=== PATIENT | female | born 1995 | race American Indian/Alaskan Native ===

== ENCOUNTER 2018-01-26 20:16 | Emergency (ER) | payer SELFPAY ==
[2018-01-26 20:47] VITALS: BP 112/75; PULSE 75; RESP 16; TEMP 99.3; O2SAT 100
--- NOTE | 2018-01-26 21:50 | C.PDOC ---
History Of Present Illness 22 year old female complains of constipation for 2 weeks. She has history of constipation, usually has bowel movement every 4 days. She has tried magnesium citrate, miralax, saline enema and suppositories and has not had a regular bowel movement. She feels the urge and admits to having pain in rectal area, denies any bleeding or hemorrhoids. She was seen at [facility] yesterday and they recommended fiber and miralax. She ate oatmeal, drank prune juice and miralax yesterday without relief. Denies any fever, nausea, vomiting, abdominal pain but feels discomfort. Time Seen by Provider: 01/26/18 20:50 Chief Complaint (Nursing): GI Problem History Per: Patient History/Exam Limitations: no limitations Onset/Duration Of Symptoms: Days Current Symptoms Are (Timing): Still Present Associated Symptoms: Constipation, Other ((+) Rectal pain (-) Abdominal pain). denies: Fever, Chills, Nausea, Vomiting Exacerbating Factors: None Alleviating Factors: None Recent travel outside of the [place]: No Abnormal Vaginal Bleeding: No Past Medical History Reviewed: Historical Data, Nursing Documentation, Vital Signs Vital Signs: Last Vital Signs Temp 99.3 F 01/26/18 20:42 Pulse 75 01/26/18 20:42 Resp 16 01/26/18 20:42 BP 112/75 01/26/18 20:42 Pulse Ox 100 01/26/18 22:48 - Medical History PMH: No Chronic Diseases Surgical History: No Surg Hx Family History: States: Unknown Family Hx - Social History Hx Alcohol Use: No Hx Substance Use: No - Immunization History Hx Influenza Vaccination: No Hx Pneumococcal Vaccination: No Review Of Systems Constitutional: Negative for: Fever, Chills Gastrointestinal: Positive for: Constipation, Rectal Pain. Negative for: Nausea , Vomiting, Abdominal Pain Genitourinary: Negative for: Dysuria, Hematuria Musculoskeletal: Negative for: Back Pain Physical Exam - Physical Exam Appears: Non-toxic Skin: Normal Color, Warm, Dry Head: Atraumatic, Normacephalic Eye(s): bilateral: Normal Inspection Neck: Normal ROM Chest: Symmetrical, No Tenderness Cardiovascular: Rhythm Regular Respiratory: Normal Breath Sounds, No Rales, No Rhonchi, No Wheezing Gastrointestinal/Abdominal: Bowel Sounds, Soft, No Tenderness, No Mass, No Distention, No Guarding Rectal: Rectal Tone (Normal), No Blood Streaked Stool, No Hemorrhoids, No Mass, No Other (Impacted stools) Extremity: Bilateral: Atraumatic Neurological/Psych: Oriented x3, Normal Speech ED Course And Treatment O2 Sat by Pulse Oximetry: 100 (Room air) Pulse Ox Interpretation: Normal Medical Decision Making Medical Decision Making: Obstructive series ordered, shows normal gas pattern, no fecal impaction or moderate fecal retention, stools seen in rectum. Patient resting comfortably in no distress, vitals are stable, and abdomen remains soft. I recommend fluids , rest, fiber and will discharge home with Rx and instructions to follow up with PMD. Disposition Counseled Patient/Family Regarding: Studies Performed, Diagnosis, Need For Followup - Disposition Disposition: HOME/ ROUTINE Disposition Time: 22:44 Condition: STABLE Additional Instructions: Follow up with your primary medical doctor or clinic in 2-5 days for further evaluation. Take medications as prescribed. Return to the emergency department at any time if symptoms persist or worsen. Prescriptions: Docusate [Colace] 100 mg PO TID PRN #30 cap PRN Reason: Constipation Instructions: Constipation, Adult (DC) - POA Present On Arrival: None - Clinical Impression Clinical Impression: Constipation - PA / C.O.D. BILLER / Resident Statement MD/DO has reviewed & agrees with the documentation as recorded. - Scribe Statement The provider has reviewed the documentation as recorded by the Scribchevy Slaughter All medical record entries made by the Oly were at my direction and personally dictated by me. I have reviewed the chart and agree that the record accurately reflects my personal performance of the history, physical exam, medical decision making, and the department course for this patient. I have also personally directed, reviewed, and agree with the discharge instructions and disposition.
--- NOTE | 2018-01-27 08:34 | RAD ---
PROCEDURE: Radiographs of the chest and abdomen (obstructive series) HISTORY: abd pain constipation COMPARISON: No prior. TECHNIQUE: AP radiograph of the chest, with upright and supine radiographs of the abdomen. FINDINGS: CHEST: Lungs: Clear. Cardiovascular: Normal size heart. No pulmonary vascular congestion. Pleura: No pleural fluid. No pneumothorax. Other findings: None. ABDOMEN AND PELVIS: Bowel: Unremarkable bowel gas pattern. No evidence of mechanical obstruction. Free air: None. Bones: Unremarkable. Other findings: None. IMPRESSION: Unremarkable radiographs of chest and abdomen. No evidence of mechanical bowel obstruction.
== END 2018-01-26 22:53 | disposition home or self-care (01) ==
LOC: C.ER 20:16
DX: K59.00 Constipation, unspecified (principal)